=== PATIENT | male | born 1970 | race Caucasian/White ===

== ENCOUNTER 2017-03-18 17:20 | Emergency (ER) | payer OTHER ==
[2017-03-18 18:03] VITALS: BP 128/84; PULSE 93; TEMP 97.6; BMI 33.9
--- NOTE | 2017-03-18 18:12 | PDOC ---
History of Present Illness - General History Source: Patient, EMS Exam Limitations: No Limitations - History of Present Illness Initial Comments: 03/18/17 18:21 46-year-old male with past medical history of alcohol abuse, was sober for many years but Currently relapsed and had a few drinks of alcohol this morning. Patient went to sit down outdoors and has sustained abrasions along his left upper showing. Denies head trauma or loss of consciousness. A bystander called 911 and the patient is brought to the ED. When I had evaluated patient, the patient was mildly intoxicated but otherwise ambulatory without difficulty and speaking with no difficulties. Patient at this time has no other injuries and no head trauma. Denies headaches, nausea, vomiting. Allergies: Penicillins Past surgical history: R ankle surgery Social history: EtOH abuse PCP: Dr. Saleh <Magalys Rod - Last Filed: 03/18/17 18:21> - General History Source: Patient Exam Limitations: No Limitations <Av Javier - Last Filed: 03/18/17 19:11> - General Chief Complaint: Alcohol intoxication Stated Complaint: INTOX,FALL Time Seen by Provider: 03/18/17 18:00 Past History <Magalys Rod - Last Filed: 03/18/17 18:21> <Av Javier - Last Filed: 03/18/17 19:11> - Past Medical History Allergies/Adverse Reactions: Allergies Allergy/AdvReac Type Severity Reaction Status Date / Time Penicillins Allergy Verified 03/18/17 18:03 Review of Systems - Review of Systems Able to Perform ROS?: Yes Comments:: 03/18/17 18:21 GENERAL/CONSTITUTIONAL: No fever or chills. No weakness. HEAD, EYES, EARS, NOSE AND THROAT: No change in vision. No ear pain or discharge. No sore throat. CARDIOVASCULAR: No chest pain or shortness of breath. RESPIRATORY: No cough, wheezing, or hemoptysis. GASTROINTESTINAL: No nausea, vomiting, diarrhea or constipation. GENITOURINARY: No dysuria, frequency, or change in urination. MUSCULOSKELETAL: No joint or muscle swelling or pain. No neck or back pain. SKIN: No rash NEUROLOGIC: No headache, vertigo, loss of consciousness, or change in strength/ sensation. ENDOCRINE: No increased thirst. No abnormal weight change. HEMATOLOGIC/LYMPHATIC: No anemia, easy bleeding, or history of blood clots. ALLERGIC/IMMUNOLOGIC: No hives or skin allergy. <Marcel,Magalys - Last Filed: 03/18/17 18:21> *Physical Exam - Vital Signs Last Vital Signs Temp Pulse Resp BP Pulse Ox 97.6 F 93 H 18 128/84 100 03/18/17 17:20 03/18/17 17:20 03/18/17 17:20 03/18/17 17:20 03/18/17 17:20 - Physical Exam Comments: 03/18/17 18:22 GENERAL: Awake, alert, and fully oriented x3, in no acute distress. + Mild AOB. HEAD: No signs of trauma EYES: PERRLA, EOMI, sclera anicteric, conjunctiva clear ENT: Auricles normal inspection, hearing grossly normal, nares patent, oropharynx clear without exudates. Moist mucosa NECK: Normal ROM, supple, no lymphadenopathy, JVD, or masses LUNGS: Breath sounds equal, clear to auscultation bilaterally. No wheezes, and no crackles HEART: Regular rate and rhythm, normal S1 and S2, no murmurs, rubs or gallops ABDOMEN: Soft, nontender, normoactive bowel sounds. No guarding, no rebound. No masses EXTREMITIES: Normal range of motion, no edema. No clubbing or cyanosis. No cords, erythema, or tenderness NEUROLOGICAL: Cranial nerves II through XII grossly intact. Normal speech, normal gait SKIN: Warm, Dry, normal turgor, no rashes or lesions noted. <Magalys Rod - Last Filed: 03/18/17 18:21> Medical Decision Making - Medical Decision Making 03/18/17 18:01 A portion of this note was documented by scribe services under my direction. I have reviewed the details of the note, within reason, and agree with the documentation with the following case summary and management plan written by me. Patient treated in the ED. Nursing notes are reviewed and incorporated into the medical decision-making. Vital signs reviewed. Peripheral IV access obtained by the nurse, laboratory studies are drawn and sent, reviewed and interpreted by myself. Vital Signs Temp Pulse Resp BP Pulse Ox 97.6 F 93 H 18 128/84 100 03/18/17 17:20 03/18/17 17:20 03/18/17 17:20 03/18/17 17:20 03/18/17 17:20 46-year-old male with past medical history of alcohol abuse, was sober for many years but Currently relapsed and had a few drinks of alcohol this morning. Patient went to sit down outdoors and has sustained abrasions along his left upper showing. Denies head trauma or loss of consciousness. A bystander called 911 and the patient is brought to the ED. When I had evaluated patient, the patient was mildly intoxicated but otherwise ambulatory without difficulty and speaking with no difficulties. Patient at this time has no other injuries and no head trauma. Denies headaches, nausea, vomiting. At this time, we'll observe the patient for the next hour which I suspect she'll be sober enough to go home. At this time, we'll defer on imaging. 03/18/17 19:10 Pt appears sober and ambulatory. Will d/c the patient. I discussed the physical exam findings, ancillary test results and final diagnoses with the patient. I answered all of the patient's questions. The patient was satisfied with the care received and felt comfortable with the discharge plan and treatment plan. The patient will call their primary care physician within 24 hours to arrange follow-up and will return to the Emergency Department with any new, persistant or worsening symptoms. <Av Javier - Last Filed: 03/18/17 19:11> *DC/Admit/Observation/Transfer - Attestations Scribe Attestion: 03/18/17 18:22 Documentation prepared by Magalys Rod, acting as medical pathology teacher for Av Javier MD <Magalys Rod - Last Filed: 03/18/17 18:21> - Discharge Dispostion Admit: No <Av Javier - Last Filed: 03/18/17 19:11> Diagnosis at time of Disposition: Alcohol intoxication Qualifiers: Complication of substance-induced condition: uncomplicated Qualified Code(s): F10.920 - Alcohol use, unspecified with intoxication, uncomplicated - Discharge Dispostion Disposition: HOME Condition at time of disposition: Improved - Referrals Referrals: Benny Saleh [Primary Care Provider] - - Patient Instructions Printed Discharge Instructions: DI for Dehydration -- Adult Additional Instructions: Please follow up with your doctors. Drink plenty of fluids and rest.
== END 2017-03-18 19:22 | disposition home or self-care (01) ==
LOC: JER 17:20
DX: F10.120 Alcohol abuse with intoxication, uncomplicated (principal); S40.212A Abrasion of left shoulder, initial encounter; W01.0XXA Fall on same level from slipping, tripping and stumbling without subsequent striking against object, initial encounter; Y93.89 Activity, other specified; Y92.480 Sidewalk as the place of occurrence of the external cause
CPT/HCPCS: 99281-25; 99282-25

== ENCOUNTER 2017-04-12 00:44 | Inpatient (IN) | payer OTHER ==
[2017-04-12] MEDS ORDERED: chlordiazePOXIDE HCL 25 MG CAPSULE PO ONE (00:54)
[2017-04-12] MEDS ORDERED: IBUPROFEN 400 MG TABLET (FP) PO PRN (00:54)
[2017-04-12] MEDS ORDERED: guaiFENesin/D-METHORPHAN HB 10 ML UNIT-DOSE CUPS PO PRN (00:54)
[2017-04-12] MEDS ORDERED: LOPERAMIDE HCL 2 MG CAPSULE PO PRN (00:54)
[2017-04-12] MEDS ORDERED: P-EPHED 60MG/TRIPROLIDI 2.5MG TABLET PO PRN (00:54)
[2017-04-12] MEDS ORDERED: ACETAMINOPHEN 325 MG TABLET (FP) PO PRN (00:54)
[2017-04-12] MEDS ORDERED: MAGNESIUM CITRATE 300 ML BOTTLE PO PRN (00:54)
[2017-04-12] MEDS ORDERED: hydrOXYzine PAMOATE 50 MG CAPSULE (FP) PO PRN (00:54)
[2017-04-12] MEDS ORDERED: MAGNESIUM HYDROX 2400MG/30ML ORAL SUSPENSION 30 ML CUP PO PRN (00:54)
[2017-04-12] MEDS ORDERED: MENTHOL/PHENOL 1 EACH UD MM PRN (00:54)
[2017-04-12] MEDS ORDERED: chlordiazePOXIDE HCL 25 MG CAPSULE PO PRN (00:54)
[2017-04-12] MEDS ORDERED: MAG HYDROX/AL HYDROX/SIMETH 30 ML UNIT-DOSE CUP PO PRN (00:54)
--- NOTE | 2017-04-12 01:01 | HP ---
CIWA Score - CIWA Score Nausea/Vomitin-Mild Nausea/No Vomiting Muscle Tremors: 2 Anxiety: 4-Mod. Anxious/Guarded Agitation: 3 Paroxysmal Sweats: 4-Forehead w/Sweat Beads Orientation: 1-Uncertain about Date Tacttile Disturbances: 0-None Auditory Disturbances: 0-None Visual Disturbances: 1-Very Mild Sensitivity Headache: 1-Very Mild CIWA-Ar Total Score: 17 Admission ROS BHS - HPI Chief Complaint: WITHDRAWAL SYMPTOMS Allergies/Adverse Reactions: Allergies Allergy/AdvReac Type Severity Reaction Status Date / Time Penicillins Allergy Verified 03/18/17 18:03 History of Present Illness: 46 Y.O. MAN WITH AN EXTENSIVE HISTORY OF ALCOHOL DEPENDENCE IS SEEKING DETOX. HE REPORTED HE LAST COMPLETED DETOX 20 YEARS AGO AND MOST RECENTLY COMPLETED OUTPATIENT REHAB IN 2015. HE REPORTS HAVING A 2 YEAR HISTORY OF SOBRIETY AND RELAPSING IN March,. Exam Limitations: Intoxication - Ebola screening Have you traveled outside of the country in the last 21 days: No - Review of Systems Constitutional: Changes in sleep EENT: reports: Blurred Vision, Tearing, Nose Congestion Respiratory: reports: Wheezing Cardiac: reports: No Symptoms Reported GI: reports: No Symptoms Reported : reports: No Symptoms Reported Musculoskeletal: reports: Back Pain Integumentary: reports: No Symptoms Reported Neuro: reports: No Symptoms reported Endocrine: reports: No Symptoms Reported Hematology: reports: No Symptoms Reported Psychiatric: reports: Anxious, Depressed Other Systems: Reviewed and Negative Patient History - Patient Medical History Hx Anemia: No Hx Asthma: Yes Hx Chronic Obstructive Pulmonary Disease (COPD): Yes Hx Cancer: No Hx Cardiac Disorders: No Hx Congestive Heart Failure: No Hx Hypertension: No Hx Hypercholesterolemia: Yes Hx Pacemaker: No HX Cerebrovascular Accident: No Hx Seizures: No Hx Dementia: No Hx Diabetes: No Hx Gastrointestinal Disorders: No Hx Liver Disease: No Hx Genitourinary Disorders: No Hx Sexually Transmitted Disorders: No Hx Renal Disease (ESRD): No Hx Thyroid Disease: No Hx Human Immunodeficiency Virus (HIV): No Hx Hepatitis C: No Hx Depression: Yes Hx Suicide Attempt: No Hx Bipolar Disorder: No Hx Schizophrenia: No - Patient Surgical History Past Surgical History: Yes Hx Orthopedic Surgery: Yes (Left ankle fx repair sx ) Anesthesia Reaction: No - PPD History Previous Implant?: Yes Documented Results: Negative w/o proof PPD to be Administered?: Yes - Reproductive History Patient is a Female of Child Bearing Age (11 -55 yrs old): No - Smoking Cessation Smoking history: Never smoked Have you smoked in the past 12 months: No Hx Chewing Tobacco Use: No - Substance & Tx. History Hx Alcohol Use: Yes Hx Substance Use: No Substance Use Type: Alcohol Hx Substance Use Treatment: Yes (Detox 20 years ago; outpatient rehab in 2017) - Substances Abused Alcohol Route: Oral Frequency: Daily Amount used: 1 litre of Vodka Age of first use: 10 Date of Last Use: 04/12/17 Family Disease History - Family Disease History Family Disease History: Respiratory: Mother (ETOH DEPENDENT ), Other: Father ( ETOH DEPENDENT ), Mother Admission Physical Exam [facility] - Vital Signs Vital Signs: Last Vital Signs Temp Pulse Resp BP Pulse Ox 97.8 F 100 H 16 103/71 04/12/17 02:42 04/12/17 02:42 04/12/17 02:42 04/12/17 02:42 - Physical General Appearance: Yes: Alcohol on Breath, Irritable, Sweating, Anxious HEENTM: Yes: Hearing grossly Normal, Normocephalic, Normal Voice Respiratory: Yes: Chest Non-Tender, Lungs Clear, Normal Breath Sounds, No Respiratory Distress, No Accessory Muscle Use Neck: Yes: No masses,lesions,Nodules Breast: Yes: Breast Exam Deferred Cardiology: Yes: Regular Rhythm, Regular Rate Abdominal: Yes: Non Tender, Flat, Soft Genitourinary: Yes: Other (NO COMPLAINTS REPORTED) Musculoskeletal: Yes: Gait Steady, Pelvis Stable Extremities: Yes: Normal Inspection, Normal Range of Motion, Non-Tender Neurological: Yes: Alert, Normal Mood/Affect, Normal Response Integumentary: Yes: Normal Color, Dry, Warm Lymphatic: Yes: Within Normal Limits - Diagnostic (1) Alcohol dependence with uncomplicated withdrawal Current Visit: Yes Status: Chronic (2) Asthma Current Visit: Yes Status: Chronic (3) COPD (chronic obstructive pulmonary disease) Current Visit: Yes Status: Chronic (4) Psoriasis Current Visit: Yes Status: Chronic Cleared for Admission [facility] - Detox or Rehab [facility] Level of Care: Medically Managed Detox Regimen/Protocol: Librium S Breath Alcohol Content Breath Alcohol Content: 0.114 Vital Signs - Vital Signs Vital Signs Refused: No Temperature: 97.8 F Temperature Source: Oral Pulse Rate: 100 Respiratory Rate: 16 Blood Pressure: 103/71 BP Location: Left Arm Blood Pressure Position: Sitting - Height Height: 5 ft 11 in - Weight Weight: 250 lb Weight Measurement Method: Standing Scale Body Mass Index (BMI): 34.8 - Bowel Function Bowel Movement: No Urine Drug Screen - Test Device Lot Number: [id number] Expiration Date: 12/07/18 - Control Is Test Valid: Yes - Results Drug Screen Negative: Yes
[2017-04-12] MEDS ORDERED: diphenhydrAMINE HCL 25 MG CAPSULE (FP) PO ONE (01:37)
[2017-04-12] MEDS: diphenhydrAMINE HCL 50 MG CAPSULE PO PRN ×2 (01:58→22:08)
[2017-04-12 02:43] VITALS: BMI 34.8
[2017-04-12] MEDS ORDERED: ALBUTEROL SO4 6.7 GM HFA INHALER IH PRN (02:48)
[2017-04-12] MEDS: chlordiazePOXIDE HCL 25 MG CAPSULE PO SCH ×4 (05:39→22:09)
[2017-04-12] MEDS: PRENATAL VITAMINS W/ FOLIC ACID TABLET (FP) PO SCH (10:21)
--- NOTE | 2017-04-12 11:57 | PN ---
S CIWA - CIWA Score Nausea/Vomitin-No Nausea/No Vomiting Muscle Tremors: 4-Moderate,w/Arms Extend Anxiety: 3 Agitation: 4-Moderately Restless Paroxysmal Sweats: 3 Orientation: 0-Oriented Tacttile Disturbances: 0-None Auditory Disturbances: 0-None Visual Disturbances: 0-None Headache: 0-None Present CIWA-Ar Total Score: 14 BHS Progress Note (SOAP) Subjective: interrupted sleep shakes sweats body aches agitation Objective: 04/12/17 12:00 Vital Signs Temperature 98.1 F 04/12/17 10:00 Pulse Rate 93 H 04/12/17 10:00 Respiratory Rate 20 04/12/17 10:00 Blood Pressure 136/96 04/12/17 10:00 O2 Sat by Pulse Oximetry (%) labs pending awake/alert lying in bed no acute distress Assessment: 04/12/17 12:01 withdrawal sx Plan: continue detox increase fluids labs pending
--- NOTE | 2017-04-12 14:05 | CONSULT ---
[facility] Psychiatric Consult - Data Date of interview: 04/12/17 Admission source: [facility] Identifying data: First admission to [facility] for this 46 y/o male seeking detox treatment on for alcohol dependence.Patient is single without children,domiciled (lives with a friend),unemployed and supported on Public Assistance. Substance Abuse History: Discussed in this session.Patient confirms the following data reported at [facility] : Smoking Cessation. Smoking history: Never smoked. Have you smoked in the past 12 months: No. Hx Chewing Tobacco Use: No. - Substance & Tx. History. Hx Alcohol Use: Yes. Hx Substance Use: No. Substance Use Type: Alcohol. Hx Substance Use Treatment: Yes (Detox 20 years ago; outpatient rehab in 2017). - Substances Abused. Alcohol. Route: Oral. Frequency: Daily. Amount used: 1 litre of Vodka. Age of first use: 10. Date of Last Use: 04/12/17 Medical History: Obesity,COPD,bronchial asthma and past history of orthosurgery (left ankle). Psychiatric History: No reported history of psychiatric hospitalizations but current OPD care at the [facility] in [facility].Mr Plaza endorses MDD and PTSD.Treated with a combination of prozac + remeron + trazodone (doses not recalled).Degreee of compliance cannot be established in this session.Patient denies history of suicide attempts. Physical/Sexual Abuse/Trauma History: Patient denies.Declines to discuss clinical elements that support his diagnosis of PTSD.Mr Plaza simply comments that he " went through a lot ". Additional Comment: Drug Screen is negative. Mental Status Exam - Mental Status Exam Alert and Oriented to: Time, Place, Person Cognitive Function: Good Patient Appearance: Well Groomed (overweight) Mood: Withdrawn Affect: Appropriate, Normal Range Patient Behavior: Passive, Fatigued, Cooperative Speech Pattern: Clear Voice Loudness: Normal Thought Process: Goal Oriented Thought Disorder: Not Present Hallucinations: Denies Suicidal Ideation: Denies Homicidal Ideation: Denies Insight/Judgement: Poor Sleep: Poorly, Difficulty falling asleep Appetite: Good Muscle strength/Tone: Normal Gait/Station: Normal Psychiatric Findings - Problem List ([place] 1, 2,3) (1) Alcohol dependence with uncomplicated withdrawal Current Visit: Yes Status: Acute (2) Substance induced mood disorder Current Visit: Yes Status: Acute (3) Post traumatic stress disorder (PTSD) Current Visit: No Status: Chronic Comment: As per records. (4) MDD (major depressive disorder) Current Visit: Yes Status: Chronic Comment: History. (5) Asthma Current Visit: Yes Status: Chronic (6) COPD (chronic obstructive pulmonary disease) Current Visit: Yes Status: Chronic (7) Psoriasis Current Visit: Yes Status: Chronic (8) Insomnia Current Visit: Yes Status: Acute - Initial Treatment Plan Initial Treatment Plan: Psychoeducation.Detoxification is under way.Medications : prozac 40 mg po daily + trazodone 100 mg po hs.Mirtazapine is withdrawn (no clinical justification for tgree concomitant antidepressant agents).Medications verified via survey of recent pharmacy claims (on 03/07/17 at [facility]).Side effects/benefits discussed with the patient.Made aware of potential for priapism (trazodone),suicidal ideation/sexual dysfunction (prozac).Mr Plaza indicates that he is in agreement with this careplan.Observation.
[2017-04-12 17:03] LABS: URINE APPEARANCE CLEAR; URINE BILIRUBIN NEGATIVE (NEGATIVE); URINE BLOOD NEGATIVE (NEGATIVE); URINE COLOR YELLOW; URINE GLUCOSE (UA) NEGATIVE (NEGATIVE); URINE KETONE NEGATIVE (NEGATIVE); URINE LEUK ESTERASE NEGATIVE (NEGATIVE); URINE NITRITE NEGATIVE (NEGATIVE); URINE PROTEIN NEGATIVE (NEGATIVE); URINE UROBILINOGEN NEGATIVE mg/dL (0.2-1.0)
[2017-04-12] MEDS ORDERED: MIRTAZAPINE 15 MG TABLET (FP) PO SCH (22:00)
[2017-04-12] MEDS: traZODone HCL 100 MG TABLET (FP) PO SCH (22:08)
[2017-04-12] MEDS: THIAMINE HCL 100 MG TABLET (FP) PO SCH (22:09)
[2017-04-13] MEDS: chlordiazePOXIDE HCL 25 MG CAPSULE PO SCH ×4 (06:14→22:05)
--- NOTE | 2017-04-13 08:16 | EKG ---
Test Reason : Blood Pressure : / mmHG Vent. Rate : 074 BPM Atrial Rate : 074 BPM P-R Int : 134 ms QRS Dur : 088 ms QT Int : 384 ms P-R-T Axes : 068 016 042 degrees QTc Int : 426 ms NORMAL SINUS RHYTHM NORMAL ECG NO PREVIOUS ECGS AVAILABLE Confirmed by MUSHTAQ SPARKS, DOYLE ([id number]) on 04/13/2017 8:15:47 AM Referred By: Confirmed By:DOYLE LANDIN MD
[2017-04-13] MEDS: FLUoxetine HCL 20 MG CAPSULE (FP) PO SCH (10:33)
[2017-04-13] MEDS: PRENATAL VITAMINS W/ FOLIC ACID TABLET (FP) PO SCH (10:33)
--- NOTE | 2017-04-13 13:08 | PN ---
S CIWA - CIWA Score Nausea/Vomitin Muscle Tremors: 3 Anxiety: 3 Agitation: 2 Paroxysmal Sweats: 1-Minimal Palms Moist Orientation: 0-Oriented Tacttile Disturbances: 1-Very Mild Itch/Numbness Auditory Disturbances: 1-Very Mild Visual Disturbances: 1-Very Mild Sensitivity Headache: 2-Mild CIWA-Ar Total Score: 17 BHS Progress Note (SOAP) Subjective: ALERT,IRRITABLE,ANXIOUS,INTERRUPTED SLEEP,TREMOR, Objective: 04/13/17 13:06 Vital Signs Temperature 97.7 F 04/13/17 10:06 Pulse Rate 98 H 04/13/17 10:06 Respiratory Rate 20 04/13/17 10:06 Blood Pressure 130/87 04/13/17 10:06 O2 Sat by Pulse Oximetry (%) EKG NSR,NORMAL ECG Laboratory Last Values Urine Color Yellow 04/12/17 16:00 Urine Appearance Clear 04/12/17 16:00 Urine pH 6.0 (5.0-8.0) 04/12/17 16:00 Ur Specific [place] 1.025 (1.005-1.025) 04/12/17 16:00 Urine Protein Negative (NEGATIVE) 04/12/17 16:00 Urine Glucose (UA) Negative (NEGATIVE) 04/12/17 16:00 Urine Ketones Negative (NEGATIVE) 04/12/17 16:00 Urine Blood Negative (NEGATIVE) 04/12/17 16:00 Urine Nitrite Negative (NEGATIVE) 04/12/17 16:00 Urine Bilirubin Negative (NEGATIVE) 04/12/17 16:00 Urine Urobilinogen Negative mg/dL (0.2-1.0) 04/12/17 16:00 Ur Leukocyte Esterase Negative (NEGATIVE) 04/12/17 16:00 LABS PENDING Assessment: 04/13/17 13:07 WITHDRAWAL SYMPTOM Plan: CONTINUE DETOX
[2017-04-13 13:45] LABS: MCH 30.9 pg (25.7-33.7); MCHC 33.3 g/dl (32.0-35.9); MEAN CELL VOLUME 92.7 fl (80-96); MEAN PLT VOLUME 9.3 fl (7.5-11.1); PLATELET COUNT 253 K/MM3 (134-434); RDW 15.3 % (11.9-15.9); WHITE BLOOD COUNT 6.8 K/mm3 (4.0-10.0)
[2017-04-13 13:59] LABS: ALBUMIN 3.3 g/dl (3.4-5.0); ANION GAP 8 (8-16); CALCIUM 8.7 mg/dL (8.5-10.1); CO2 29 mmol/L (21-32); GLUCOSE,RANDOM 198 mg/dL (74-106)
[2017-04-13 14:03] LABS: ALK PHOS 69 U/L (45-117); BILIRUBIN,TOTAL 0.5 mg/dL (0.2-1.0); SGOT/AST 20 U/L (15-37); SGPT/ALT 43 U/L (12-78)
[2017-04-13] MEDS: THIAMINE HCL 100 MG TABLET (FP) PO SCH (22:05)
[2017-04-13] MEDS: traZODone HCL 100 MG TABLET (FP) PO SCH (22:05)
[2017-04-14] MEDS: chlordiazePOXIDE 5 MG CAPSULE PO SCH ×4 (05:32→22:06)
[2017-04-14] MEDS: PRENATAL VITAMINS W/ FOLIC ACID TABLET (FP) PO SCH (10:09)
[2017-04-14] MEDS: FLUoxetine HCL 20 MG CAPSULE (FP) PO SCH (10:09)
--- NOTE | 2017-04-14 13:04 | PN ---
S Progress Note (SOAP) Subjective: ALERT,IRRITABLE,ANXIOUS,INTERRUPTED SLEEP, Objective: 04/14/17 13:03 Vital Signs Temperature 97.7 F 04/14/17 10:32 Pulse Rate 91 H 04/14/17 10:32 Respiratory Rate 18 04/14/17 10:32 Blood Pressure 125/81 04/14/17 10:32 O2 Sat by Pulse Oximetry (%) Assessment: 04/14/17 13:03 WITHDRAWAL SYMPTOM Plan: CONTINUE DETOX
[2017-04-14] MEDS: traZODone HCL 100 MG TABLET (FP) PO SCH (22:06)
[2017-04-14] MEDS: THIAMINE HCL 100 MG TABLET (FP) PO SCH (22:06)
[2017-04-15] MEDS: chlordiazePOXIDE HCL 10 MG CAPSULE PO SCH ×4 (05:15→22:39)
--- NOTE | 2017-04-15 10:13 | PN ---
BHS Progress Note (SOAP) Subjective: hot/cold chills sweats interrupted sleep Objective: 04/15/17 10:12 Vital Signs Temperature 96.3 F L 04/15/17 09:58 Pulse Rate 106 H 04/15/17 09:58 Respiratory Rate 20 04/15/17 09:58 Blood Pressure 92/83 04/15/17 09:58 O2 Sat by Pulse Oximetry (%) awake/alert ambulating no acute distress Assessment: 04/15/17 10:12 withdrawal sx Plan: continue detox increase fluids d/c in am
[2017-04-15] MEDS: PRENATAL VITAMINS W/ FOLIC ACID TABLET (FP) PO SCH (10:19)
[2017-04-15] MEDS: FLUoxetine HCL 20 MG CAPSULE (FP) PO SCH (10:19)
[2017-04-15] MEDS: THIAMINE HCL 100 MG TABLET (FP) PO SCH (22:39)
[2017-04-15] MEDS: traZODone HCL 100 MG TABLET (FP) PO SCH (22:39)
[2017-04-16 06:22] VITALS: BP 127/81; PULSE 78; TEMP 97.5
--- NOTE | 2017-04-16 08:42 | DS ---
[facility] Detox Discharge Summary Admission Date: 04/12/17 Discharge Date: 04/16/17 - History Present History: Alcohol Dependence - Physical Exam Results Vital Signs: Vital Signs Temperature 97.5 F L 04/16/17 06:00 Pulse Rate 78 04/16/17 06:00 Respiratory Rate 18 04/16/17 06:00 Blood Pressure 127/81 04/16/17 06:00 O2 Sat by Pulse Oximetry (%) - Treatment Hospital Course: Detox Protocol Followed, Detoxed Safely, Responded well, Discharged Condition Good, Rehab Referral Accepted - Medication Discharge Medications: Ambulatory Orders Fluoxetine HCl [Prozac -] 50 mg PO DAILY 03/18/17 Mirtazapine [Remeron [DO NOT STOCK]] 45 mg PO DAILY 03/18/17 Trazodone HCl 100 mg PO DAILY 03/18/17 Fluoxetine HCl [Prozac -] 40 mg PO DAILY #60 capsule 04/12/17 Trazodone HCl 100 mg PO HS #30 tablet 04/12/17 - Diagnosis (1) Alcohol dependence with uncomplicated withdrawal Current Visit: Yes Status: Chronic (2) Insomnia Current Visit: Yes Status: Acute (3) Substance induced mood disorder Current Visit: Yes Status: Acute (4) Asthma Current Visit: Yes Status: Chronic Qualifiers: Asthma severity: mild intermittent (5) COPD (chronic obstructive pulmonary disease) Current Visit: Yes Status: Chronic Qualifiers: Chronic bronchitis type: unspecified (6) MDD (major depressive disorder) Current Visit: Yes Status: Chronic (7) Psoriasis Current Visit: Yes Status: Chronic (8) Alcohol intoxication Current Visit: No Status: Acute Qualifiers: Complication of substance-induced condition: uncomplicated Qualified Code(s): F10.920 - Alcohol use, unspecified with intoxication, uncomplicated (9) Post traumatic stress disorder (PTSD) Current Visit: No Status: Chronic - AMA Did Patient Leave Against Medical Advice: No
== END 2017-04-16 09:05 | disposition home or self-care (01) | DRG 775 ==
LOC: YASAS 00:44 → Y6N 00:46
PROVIDERS: ADMIT Internal Medicine; ATTEND Internal Medicine
PROC: HZ2ZZZZ Detoxification Services for Substance Abuse Treatment (ICD-10-PCS; principal; 2017-04-12)
DX: F10.230 Alcohol dependence with withdrawal, uncomplicated (principal); F19.24 Other psychoactive substance dependence with psychoactive substance-induced mood disorder; F33.9 Major depressive disorder, recurrent, unspecified; F43.10 Post-traumatic stress disorder, unspecified; J45.20 Mild intermittent asthma, uncomplicated; J44.9 Chronic obstructive pulmonary disease, unspecified; L40.9 Psoriasis, unspecified; G47.00 Insomnia, unspecified; E66.9 Obesity, unspecified; Z68.34 Body mass index [BMI] 34.0-34.9, adult; E78.00 Pure hypercholesterolemia, unspecified
CPT/HCPCS: 36415; 80053; 81003; 85027; 86593; 93005; 93010

== ENCOUNTER 2024-02-14 21:55 | Emergency (ER) | payer OTHER ==
[2024-02-14 22:04] VITALS: BMI 38.3
[2024-02-14 23:13] LABS: BASO % 0.4 % (0-2.0); EOS % 0.9 % (0-4.5); HEMATOCRIT 42.2 % (35.4-49); HEMOGLOBIN 14.1 GM/dL (11.7-16.9); LYMPH % 12.3 % (8-40); MCH 29.7 pg (25.7-33.7); MCHC 33.4 g/dl (32.0-35.9); MEAN PLT VOLUME 8.2 fl (7.5-11.1); MONO % 7.7 % (3.8-10.2); NEUT % 78.7 % (42.8-82.8); PLATELET COUNT 434 10^3/uL (134-434); RBC 4.74 M/mm3 (4.00-5.60); RDW 16.1 % (11.9-15.9)
[2024-02-14 23:19] LABS: INR 1.02 (0.83-1.09); PROTHROMBIN TIME (PATIENT) 11.5 SEC (9.7-13.0)
[2024-02-14] MEDS: morphine CARPU-JECT 2 MG/1 ML DISP.SYRIN IVPUSH ONE (23:32)
[2024-02-14 23:33] LABS: POTASSIUM 4.5 mmol/L (3.5-5.1)
[2024-02-14 23:36] LABS: BLOOD UREA NITROGEN 11.8 mg/dL (7-18); CALCIUM 8.5 mg/dL (8.5-10.1)
[2024-02-14 23:37] LABS: ALBUMIN 3.6 g/dl (3.4-5.0)
[2024-02-14 23:40] LABS: CREATININE 0.7 mg/dL (0.55-1.3)
[2024-02-14 23:41] LABS: BILIRUBIN,TOTAL 0.6 mg/dL (0.2-1); TOT PROT 7.4 g/dl (6.4-8.2)
[2024-02-14] MEDS ORDERED: DALBAVANCIN HCL 500 MG VIAL (RESTRICTED TO ID ONLY) IVPB ONE (23:41)
[2024-02-14] MEDS: DALBAVANCIN HCL 1,500 MG in DEXTROSE 5%-WATER - 500 ML IVPB ONE (23:53)
[2024-02-15] MEDS ORDERED: morphine SULFATE 4 MG/ML VIAL ONE (01:46)
[2024-02-15 02:25] VITALS: PULSE 89; RESP 18
[2024-02-15] MEDS: morphine CARPU-JECT 4 MG/1 ML DISP.SYRIN IVPUSH ONE (02:27)
[2024-02-15 02:39] VITALS: BP 124/82
[2024-02-15 02:53] VITALS: TEMP 97.8
== END 2024-02-15 02:54 | disposition short-term general hospital (02) ==
LOC: JER 21:55
PROC: 3E03329 Introduction of Other Anti-infective into Peripheral Vein, Percutaneous Approach (ICD-10-PCS; principal; 2024-02-14)
PROC: 3E033NZ Introduction of Analgesics, Hypnotics, Sedatives into Peripheral Vein, Percutaneous Approach (ICD-10-PCS; 2024-02-14)
PROC: 3E033NZ Introduction of Analgesics, Hypnotics, Sedatives into Peripheral Vein, Percutaneous Approach (ICD-10-PCS; 2024-02-15)
DX: S01.01XA Laceration without foreign body of scalp, initial encounter (principal); S41.102A Unspecified open wound of left upper arm, initial encounter; R07.81 Pleurodynia; L55.0 Sunburn of first degree; W01.198A Fall on same level from slipping, tripping and stumbling with subsequent striking against other object, initial encounter
CPT/HCPCS: 36415; 70450-TC; 71045-TC-FY; 71250-TC; 72125-TC; 73090-TC-LT-FY; 74177-TC; 80053; 80307; 85025; 85610; 93005; 93010; 99285-25; J0875; Q9967

== ENCOUNTER 2024-04-02 17:19 | Inpatient (IN) | payer OTHER ==
[2024-04-02 18:04] VITALS: BMI 36.2
[2024-04-02] MEDS ORDERED: guaiFENesin 600 MG TABLET.ER (FP) PO PRN (21:50)
[2024-04-02] MEDS ORDERED: DICYCLOMINE HCL 10 MG CAPSULE PO PRN (21:50)
[2024-04-02] MEDS ORDERED: NALOXONE HCL 0.4 MG/ML VIAL IM PRN (21:50)
[2024-04-02] MEDS ORDERED: BENZONATATE 200 MG CAPSULE PO PRN (21:50)
[2024-04-02] MEDS ORDERED: POLYETHYLENE GLYCOL (HEALTHYLAX) 3350 17 GM PACKET PO PRN (21:50)
[2024-04-02] MEDS ORDERED: MAGNESIUM HYDROX 2400MG/30ML ORAL SUSPENSION 30 ML CUP PO PRN (21:50)
[2024-04-02] MEDS ORDERED: BENZOCAINE/MENTHOL (CHLORASEPTIC ) LOZENGE MM PRN (21:50)
[2024-04-02] MEDS ORDERED: MAG HYDROX/AL HYDROX/SIMETH 30 ML UNIT-DOSE CUP PO PRN (21:50)
[2024-04-02] MEDS ORDERED: NALOXONE (NARCAN) HCL 4 MG/0.1 ML SPRAY NS PRN (21:50)
[2024-04-02] MEDS ORDERED: ONDANSETRON *ODT* 4 MG TABLET SL PRN (21:50)
[2024-04-02] MEDS ORDERED: ACETAMINOPHEN 325 MG TABLET (FP) PO PRN (21:50)
[2024-04-02] MEDS ORDERED: BISMUTH SUBSALICYLATE 524 MG/30 ML PO PRN (21:50)
[2024-04-02] MEDS ORDERED: LOPERAMIDE HCL 2 MG CAPSULE PO PRN (21:50)
[2024-04-02] MEDS ORDERED: IBUPROFEN 400 MG TABLET (FP) PO PRN (21:50)
[2024-04-02] MEDS: hydrOXYzine PAMOATE 25 MG CAPSULE (FP) PO PRN (23:32)
[2024-04-02] MEDS: METHOCARBAMOL 500 MG TABLET PO PRN (23:32)
[2024-04-02] MEDS: MELATONIN 5 MG TABLETS PO SCH (23:32)
[2024-04-02] MEDS: THIAMINE 100 MG TABLET PO SCH (23:32)
[2024-04-03] MEDS: PRENATAL VITAMINS W/ FOLIC ACID TABLET (FP) PO SCH (09:57)
[2024-04-03] MEDS ORDERED: chlordiazePOXIDE HCL 25 MG CAPSULE PO PRN (09:58)
[2024-04-03] MEDS: chlordiazePOXIDE HCL 25 MG CAPSULE PO SCH (10:05)
[2024-04-03] MEDS: IBUPROFEN 600 MG TABLET (FP) PO PRN (10:07)
[2024-04-03] MEDS: cloNIDine HCL 0.1 MG TABLET PO ONE (13:36)
[2024-04-03] MEDS: amLODIPine BESYLATE 10 MG TABLET (FP) PO SCH (13:36)
[2024-04-03 14:26] LABS: HEMATOCRIT 39.1 % (35.4-49); HEMOGLOBIN 13.7 GM/dL (11.7-16.9); MCH 29.6 pg (25.7-33.7); MCHC 34.9 g/dl (32.0-35.9); MEAN CELL VOLUME 84.8 fl (80-96); PLATELET COUNT 208 10^3/uL (134-434); RBC 4.61 M/mm3 (4.00-5.60); RDW 15.2 % (11.9-15.9); WHITE BLOOD COUNT 3.9 K/mm3 (4.0-10.0)
[2024-04-03 14:27] LABS: CHLORIDE 100 mmol/L (98-107); SODIUM 139 mmol/L (136-145)
[2024-04-03 14:37] LABS: CALCIUM 8.4 mg/dL (8.5-10.1)
[2024-04-03 14:38] LABS: ALBUMIN 3.5 g/dl (3.4-5.0); ANION GAP 12 mmol/L (4-13); BLOOD UREA NITROGEN 9.2 mg/dL (7-18); CO2 27 mmol/L (21-32); GLUCOSE,RANDOM 86 mg/dL (74-106)
[2024-04-03 14:39] LABS: SGPT/ALT 34 U/L (13-61)
[2024-04-03 14:40] LABS: CREATININE 0.6 mg/dL (0.55-1.3)
[2024-04-03 14:41] LABS: BILIRUBIN,TOTAL 1.6 mg/dL (0.2-1); SGOT/AST 26 U/L (15-37); TOT PROT 6.4 g/dl (6.4-8.2)
[2024-04-03 14:42] LABS: ALK PHOS 136 U/L (45-117)
[2024-04-03] MEDS: POTASSIUM CHLORIDE ORAL LIQUID 20 MEQ/15 ML PO ONE (16:06)
[2024-04-03] MEDS: traZODone HCL 100 MG TABLET (FP) PO SCH (22:50)
[2024-04-03] MEDS: POTASSIUM CHLORIDE ORAL LIQUID 20 MEQ/15 ML PO SCH (22:52)
[2024-04-05] MEDS: chlordiazePOXIDE HCL 25 MG CAPSULE PO SCH (05:55)
[2024-04-06] MEDS ORDERED: chlordiazePOXIDE HCL 10 MG CAPSULE PO PRN
[2024-04-06] MEDS: chlordiazePOXIDE HCL 10 MG CAPSULE PO SCH (05:43)
[2024-04-07] MEDS: chlordiazePOXIDE HCL 10 MG CAPSULE PO SCH (05:48)
[2024-04-07] MEDS: NALTREXONE HCL 50 MG TABLET PO SCH (11:51)
[2024-04-07] MEDS: LOSARTAN POTASSIUM 50 MG TABLET PO SCH (14:42)
[2024-04-08] MEDS: chlordiazePOXIDE HCL 10 MG CAPSULE PO ONE (05:57)
[2024-04-08 12:27] VITALS: RESP 18
[2024-04-08 13:02] VITALS: BP 116/73; PULSE 106; TEMP 97.5
== END 2024-04-08 12:54 | disposition other institution (70) | DRG 775 ==
LOC: YASAS 17:19 → Y6N 21:57
PROVIDERS: ADMIT Allergy & Immunology; ATTEND Surgery
PROC: HZ2ZZZZ Detoxification Services for Substance Abuse Treatment (ICD-10-PCS; principal; 2024-04-02)
DX: F10.230 Alcohol dependence with withdrawal, uncomplicated (principal); F10.24 Alcohol dependence with alcohol-induced mood disorder; F10.282 Alcohol dependence with alcohol-induced sleep disorder; F32.9 Major depressive disorder, single episode, unspecified; F43.10 Post-traumatic stress disorder, unspecified; E87.6 Hypokalemia; I10 Essential (primary) hypertension; J44.9 Chronic obstructive pulmonary disease, unspecified; J45.20 Mild intermittent asthma, uncomplicated; L40.9 Psoriasis, unspecified; H91.91 Unspecified hearing loss, right ear; Z99.89 Dependence on other enabling machines and devices; Z88.0 Allergy status to penicillin
CPT/HCPCS: 36415; 70450-TC; 71250-TC; 72125-TC; 73610-TC-RT-FY; 73630-TC-RT-FY; 80053; 80305; 80307; 81003; 83690; 83735; 84132; 84484; 85025; 85027; 85610; 85730; 86780; 87086; 87186; 87811; 93005; 93010; 99285-25

== ENCOUNTER 2024-04-08 13:00 | Inpatient (IN) | payer OTHER ==
[~2024-04-08 13:00] MED LIST: ACETAMINOPHEN 325 MG TABLET (FP) PO PRN; BENZONATATE 200 MG CAPSULE PO PRN; IBUPROFEN 400 MG TABLET (FP) PO PRN; LOPERAMIDE HCL 2 MG CAPSULE PO PRN; MAG HYDROX/AL HYDROX/SIMETH 30 ML UNIT-DOSE CUP PO PRN; MAGNESIUM HYDROX 2400MG/30ML ORAL SUSPENSION 30 ML CUP PO PRN; NICOTINE 7 MG/24 HOURS TOPICAL PATCH TD PRN; NICOTINE POLACRILEX 2 MG GUM BUC PRN; NICOTINE POLACRILEX 2 MG LOZENGE BC PRN; POLYETHYLENE GLYCOL (HEALTHYLAX) 3350 17 GM PACKET PO PRN; guaiFENesin 600 MG TABLET.ER (FP) PO PRN
[2024-04-08] MEDS: traZODone HCL 100 MG TABLET (FP) PO SCH (21:04)
[2024-04-08] MEDS: THIAMINE 100 MG TABLET PO SCH (21:05)
[2024-04-08] MEDS: MELATONIN 5 MG TABLETS PO SCH (21:05)
[2024-04-09] MEDS: NALTREXONE HCL 50 MG TABLET PO SCH (09:42)
[2024-04-09] MEDS: amLODIPine BESYLATE 10 MG TABLET (FP) PO SCH (09:42)
[2024-04-09] MEDS: LOSARTAN POTASSIUM 50 MG TABLET PO SCH (09:42)
[2024-04-09] MEDS: PRENATAL VITAMINS W/ FOLIC ACID TABLET (FP) PO SCH (09:42)
[2024-04-09] MEDS: SERTRALINE HCL 50 MG TABLET (FP) PO SCH (10:36)
[2024-04-10] MEDS: IBUPROFEN 600 MG TABLET (FP) PO PRN (10:13)
[2024-04-12] MEDS: hydrOXYzine PAMOATE 25 MG CAPSULE (FP) PO PRN (10:21)
[2024-04-14] MEDS: BENZOCAINE/MENTHOL (CHLORASEPTIC ) LOZENGE MM PRN (10:20)
[2024-04-14] MEDS ORDERED: guaiFENesin 200 MG/10 ML 10 ML UNIT-DOSE CUPS PO PRN (10:53)
[2024-04-14] MEDS ORDERED: ALBUTEROL SO4 HFA INHALER IH PRN (10:57)
[2024-04-14] MEDS: ALBUTEROL SO4 2.5/IPRATROPIUM 0.5 INH SOL 3 ML VIAL.NEB. NEB ONE (13:59)
[2024-04-16] MEDS: BENZONATATE 200 MG CAPSULE PO PRN (10:34)
[2024-04-16] MEDS: P-EPHED 60MG/TRIPROLIDI 2.5MG TABLET PO PRN (10:34)
[2024-04-16] MEDS: FLUTICASONE PROP 0.05% 16 GM NASAL SPRAY NS SCH (14:05)
[2024-04-16] MEDS: HYDROCORTISONE 1% TOPICAL CREAM 30 GM TUBE TP PRN (14:06)
[2024-04-29] MEDS: FLUOCINONIDE 0.05% CREAM (15 GM TUBE) TP SCH (14:22)
[2024-05-04] MEDS: NALTREXONE MICROSPHERES (VIVITROL) 380 MG DISP.SYRIN IM ONE (09:41)
[2024-05-05 07:07] VITALS: TEMP 97.3
[2024-05-05 09:36] VITALS: BP 100/61; PULSE 110; RESP 17
== END 2024-05-05 13:07 | disposition home or self-care (01) | DRG 772 ==
LOC: YASAS 13:00 → Y3W 13:01
PROVIDERS: ADMIT Allergy & Immunology; ATTEND Psychiatry & Neurology Pain Medicine
PROC: HZ42ZZZ Group Counseling for Substance Abuse Treatment, Cognitive-Behavioral (ICD-10-PCS; principal; 2024-04-08)
DX: F10.20 Alcohol dependence, uncomplicated (principal); F32.A Depression, unspecified; F41.8 Other specified anxiety disorders; F43.10 Post-traumatic stress disorder, unspecified; E78.5 Hyperlipidemia, unspecified; H91.91 Unspecified hearing loss, right ear; I10 Essential (primary) hypertension; J44.9 Chronic obstructive pulmonary disease, unspecified; L40.9 Psoriasis, unspecified; J06.9 Acute upper respiratory infection, unspecified; R21 Rash and other nonspecific skin eruption; Z99.89 Dependence on other enabling machines and devices; Z88.0 Allergy status to penicillin
CPT/HCPCS: 0241U-QW; 36415; 71045-TC-FY; 84132; 94640

== ENCOUNTER 2024-05-29 16:20 | Inpatient (IN) | payer OTHER ==
[2024-05-29 17:48] VITALS: BMI 37.6
[2024-05-29] MEDS ORDERED: BISMUTH SUBSALICYLATE 524 MG/30 ML PO PRN (18:38)
[2024-05-29] MEDS ORDERED: MAG HYDROX/AL HYDROX/SIMETH 30 ML UNIT-DOSE CUP PO PRN (18:38)
[2024-05-29] MEDS ORDERED: NALOXONE (NARCAN) HCL 4 MG/0.1 ML SPRAY NS PRN (18:38)
[2024-05-29] MEDS ORDERED: IBUPROFEN 400 MG TABLET (FP) PO PRN (18:38)
[2024-05-29] MEDS ORDERED: DICYCLOMINE HCL 10 MG CAPSULE PO PRN (18:38)
[2024-05-29] MEDS ORDERED: POLYETHYLENE GLYCOL (HEALTHYLAX) 3350 17 GM PACKET PO PRN (18:38)
[2024-05-29] MEDS ORDERED: ONDANSETRON *ODT* 4 MG TABLET SL PRN (18:38)
[2024-05-29] MEDS ORDERED: BENZONATATE 200 MG CAPSULE PO PRN (18:38)
[2024-05-29] MEDS ORDERED: hydrOXYzine PAMOATE 25 MG CAPSULE (FP) PO PRN (18:38)
[2024-05-29] MEDS ORDERED: MAGNESIUM HYDROX 2400MG/30ML ORAL SUSPENSION 30 ML CUP PO PRN (18:38)
[2024-05-29] MEDS ORDERED: guaiFENesin 600 MG TABLET.ER (FP) PO PRN (18:38)
[2024-05-29] MEDS ORDERED: LOPERAMIDE HCL 2 MG CAPSULE PO PRN (18:38)
[2024-05-29] MEDS ORDERED: ACETAMINOPHEN 325 MG TABLET (FP) PO PRN (18:38)
[2024-05-29] MEDS ORDERED: NALOXONE HCL 0.4 MG/ML VIAL IM PRN (18:38)
[2024-05-29] MEDS ORDERED: chlordiazePOXIDE HCL 25 MG CAPSULE PO PRN (18:38)
[2024-05-29] MEDS ORDERED: BENZOCAINE/MENTHOL (CHLORASEPTIC ) LOZENGE MM PRN (18:38)
[2024-05-29] MEDS: IBUPROFEN 600 MG TABLET (FP) PO PRN (22:45)
[2024-05-29] MEDS: MELATONIN 5 MG TABLETS PO SCH (22:45)
[2024-05-29] MEDS: METHOCARBAMOL 500 MG TABLET PO PRN (22:46)
[2024-05-29] MEDS: chlordiazePOXIDE HCL 25 MG CAPSULE PO SCH (22:46)
[2024-05-29] MEDS: THIAMINE 100 MG TABLET PO SCH (22:46)
[2024-05-29] MEDS: MINERAL OIL/PET HY-PHL TOPICAL OINTMENT 454 GM JAR TP SCH (23:31)
[2024-05-30] MEDS: predniSONE 20 MG TABLET (UD) PO SCH (10:13)
[2024-05-30] MEDS: PRENATAL VITAMINS W/ FOLIC ACID TABLET (FP) PO SCH (10:14)
[2024-05-30 10:25] LABS: CHLORIDE 100 mmol/L (98-107); SODIUM 138 mmol/L (136-145)
[2024-05-30 10:30] LABS: HEMATOCRIT 43.2 % (35.4-49); MCH 30.2 pg (25.7-33.7); MCHC 32.5 g/dl (32.0-35.9); MEAN CELL VOLUME 92.9 fl (80-96); MEAN PLT VOLUME 7.9 fl (7.5-11.1); PLATELET COUNT 141 10^3/uL (134-434); RBC 4.65 M/mm3 (4.00-5.60); RDW 19.8 % (11.9-15.9); WHITE BLOOD COUNT 4.8 K/mm3 (4.0-10.0)
[2024-05-30 10:34] LABS: BILIRUBIN,TOTAL 1.1 mg/dL (0.2-1)
[2024-05-30 10:35] LABS: ALK PHOS 80 U/L (45-117)
[2024-05-30 10:37] LABS: ALBUMIN 3.7 g/dl (3.4-5.0); BLOOD UREA NITROGEN 11.5 mg/dL (7-18); CALCIUM 8.8 mg/dL (8.5-10.1); CO2 27 mmol/L (21-32); GLUCOSE,RANDOM 125 mg/dL (74-106)
[2024-05-30 10:39] LABS: SGOT/AST 30 U/L (15-37); SGPT/ALT 27 U/L (13-61)
[2024-05-30 10:40] LABS: ANION GAP 11 mmol/L (4-13); POTASSIUM 2.9 mmol/L (3.5-5.1)
[2024-05-30 10:41] LABS: CREATININE 0.8 mg/dL (0.55-1.3); TOT PROT 6.8 g/dl (6.4-8.2)
[2024-05-30] MEDS: POTASSIUM CHLORIDE ORAL LIQUID 20 MEQ/15 ML PO ONE ×2 (11:39→14:49)
[2024-05-30] MEDS: cloNIDine HCL 0.1 MG TABLET PO PRN (13:42)
[2024-05-30] MEDS: SERTRALINE HCL 50 MG TABLET (FP) PO SCH (14:48)
[2024-05-30] MEDS: traZODone HCL 100 MG TABLET (FP) PO SCH (22:09)
[2024-05-31] MEDS: chlordiazePOXIDE HCL 25 MG CAPSULE PO SCH (05:53)
[2024-05-31 09:17] LABS: POTASSIUM 4.1 mmol/L (3.5-5.1)
[2024-05-31 09:22] LABS: BLOOD UREA NITROGEN 11.7 mg/dL (7-18); CALCIUM 9.5 mg/dL (8.5-10.1)
[2024-05-31 09:26] LABS: CREATININE 0.8 mg/dL (0.55-1.3)
[2024-06-01] MEDS ORDERED: chlordiazePOXIDE HCL 10 MG CAPSULE PO PRN
[2024-06-01] MEDS: chlordiazePOXIDE HCL 10 MG CAPSULE PO SCH (05:35)
[2024-06-01] MEDS: LOSARTAN POTASSIUM 50 MG TABLET PO SCH (10:12)
[2024-06-01] MEDS: amLODIPine BESYLATE 10 MG TABLET (FP) PO SCH (10:12)
[2024-06-01] MEDS: FLUTICASONE PROP 0.05% 16 GM NASAL SPRAY NS SCH (10:15)
[2024-06-01] MEDS: HYDROCHLOROTHIAZIDE 12.5 MG CAPSULE (FP) PO SCH (11:12)
[2024-06-01] MEDS: NALTREXONE HCL 50 MG TABLET PO SCH (11:13)
[2024-06-02] MEDS: chlordiazePOXIDE HCL 10 MG CAPSULE PO SCH (05:42)
[2024-06-02] MEDS: LOSARTAN POTASSIUM 50 MG TABLET PO SCH (09:24)
[2024-06-02] MEDS: HYDROCHLOROTHIAZIDE 25 MG TABLET (FP) PO SCH (10:01)
[2024-06-02] MEDS: HYDROCHLOROTHIAZIDE 12.5 MG CAPSULE (FP) PO ONE (10:03)
[2024-06-03] MEDS: chlordiazePOXIDE HCL 10 MG CAPSULE PO ONE (05:54)
[2024-06-03 09:10] VITALS: BP 142/84; PULSE 84; RESP 16; TEMP 97.5
== END 2024-06-03 13:55 | disposition home or self-care (01) | DRG 775 ==
LOC: YASAS 16:20 → Y3N 18:42
PROVIDERS: ADMIT Allergy & Immunology; ATTEND Surgery
PROC: HZ2ZZZZ Detoxification Services for Substance Abuse Treatment (ICD-10-PCS; principal; 2024-05-29)
DX: F10.230 Alcohol dependence with withdrawal, uncomplicated (principal); F19.282 Other psychoactive substance dependence with psychoactive substance-induced sleep disorder; F19.24 Other psychoactive substance dependence with psychoactive substance-induced mood disorder; F32.A Depression, unspecified; F43.10 Post-traumatic stress disorder, unspecified; E87.6 Hypokalemia; H91.91 Unspecified hearing loss, right ear; I10 Essential (primary) hypertension; J45.909 Unspecified asthma, uncomplicated; L40.9 Psoriasis, unspecified; Z88.0 Allergy status to penicillin
CPT/HCPCS: 36415; 80048; 80053; 80305; 80307; 82140; 82977; 85027; 86780; 87811; 93005; 93010

== ENCOUNTER 2025-02-26 12:05 | Inpatient (IN) | payer OTHER ==
[2025-02-26 12:31] VITALS: BMI 43.9
[2025-02-26] MEDS ORDERED: cloNIDine HCL 0.1 MG TABLET ONE (13:02)
[2025-02-26] MEDS ORDERED: IBUPROFEN 400 MG TABLET (FP) PO PRN (13:03)
[2025-02-26] MEDS ORDERED: POLYETHYLENE GLYCOL (HEALTHYLAX) 3350 17 GM PACKET PO PRN (13:03)
[2025-02-26] MEDS ORDERED: BISMUTH SUBSALICYLATE 262 MG/15 ML BTL PO PRN (13:03)
[2025-02-26] MEDS ORDERED: MAGNESIUM HYDROX 2400MG/30ML ORAL SUSPENSION 30 ML CUP PO PRN (13:03)
[2025-02-26] MEDS ORDERED: MAG HYDROX/AL HYDROX/SIMETH 30 ML UNIT-DOSE CUP PO PRN (13:03)
[2025-02-26] MEDS: cloNIDine HCL 0.1 MG TABLET PO ONE (13:03)
[2025-02-26] MEDS ORDERED: DICYCLOMINE HCL 10 MG CAPSULE PO PRN (13:03)
[2025-02-26] MEDS ORDERED: ONDANSETRON *ODT* 4 MG TABLET SL PRN (13:03)
[2025-02-26] MEDS ORDERED: LOPERAMIDE HCL 2 MG CAPSULE PO PRN (13:03)
[2025-02-26] MEDS ORDERED: guaiFENesin 600 MG TABLET.ER (FP) PO PRN (13:03)
[2025-02-26] MEDS ORDERED: chlordiazePOXIDE HCL 25 MG CAPSULE PO PRN (13:03)
[2025-02-26] MEDS ORDERED: BENZONATATE 200 MG CAPSULE PO PRN (13:03)
[2025-02-26] MEDS ORDERED: NALOXONE (NARCAN) HCL 4 MG/0.1 ML SPRAY NS PRN (13:03)
[2025-02-26] MEDS ORDERED: NICOTINE 14 MG/24 HOURS TOPICAL PATCH TD ONE (13:49)
[2025-02-26] MEDS ORDERED: amLODIPine BESYLATE 5 MG TABLET (FP) ONE (13:49)
[2025-02-26] MEDS ORDERED: PRENATAL VITAMINS W/ FOLIC ACID TABLET (FP) PO ONE (13:50)
[2025-02-26] MEDS: amLODIPine BESYLATE 10 MG TABLET (FP) PO SCH (13:51)
[2025-02-26] MEDS: PRENATAL VITAMINS W/ FOLIC ACID TABLET (FP) PO SCH (13:51)
[2025-02-26] MEDS: NICOTINE 14 MG/24 HOURS TOPICAL PATCH TD SCH (13:51)
[2025-02-26] MEDS: chlordiazePOXIDE HCL 25 MG CAPSULE PO SCH (17:47)
[2025-02-26] MEDS: IBUPROFEN 600 MG TABLET (FP) PO PRN (17:48)
[2025-02-26] MEDS: MELATONIN 5 MG TABLETS PO SCH (22:54)
[2025-02-26] MEDS: THIAMINE 100 MG TABLET PO SCH (22:55)
[2025-02-26] MEDS: traZODone HCL 100 MG TABLET (FP) PO SCH (22:55)
[2025-02-26] MEDS: FLUTICASONE PROP 0.05% 16 GM NASAL SPRAY NS SCH (22:56)
[2025-02-27] MEDS: HYDROCHLOROTHIAZIDE 25 MG TABLET (FP) PO SCH (10:12)
[2025-02-27] MEDS: hydrOXYzine PAMOATE 25 MG CAPSULE (FP) PO PRN (10:12)
[2025-02-27] MEDS: NALTREXONE HCL 50 MG TABLET PO SCH (10:12)
[2025-02-27] MEDS: METHOCARBAMOL 500 MG TABLET PO PRN (10:12)
[2025-02-27] MEDS: SERTRALINE HCL 50 MG TABLET (FP) PO SCH (10:12)
[2025-02-27] MEDS: LOSARTAN POTASSIUM 50 MG TABLET PO SCH (10:12)
[2025-02-28] MEDS: chlordiazePOXIDE HCL 25 MG CAPSULE PO SCH (05:40)
[2025-03-01] MEDS ORDERED: chlordiazePOXIDE HCL 10 MG CAPSULE PO PRN
[2025-03-01] MEDS: chlordiazePOXIDE HCL 10 MG CAPSULE PO SCH (05:43)
[2025-03-01] MEDS: BENZOCAINE/MENTHOL (CHLORASEPTIC ) LOZENGE MM PRN (17:35)
[2025-03-01 17:44] LABS: ABSOLUTE IMMATURE GRANULOCYTES 0.03 x10^3/uL (0.0-0.031); BASOPHILS # 0.08 x10^3/uL (0.01-0.08); EOSINOPHIL % 4.4 % (0.8-7.0); EOSINOPHILS # 0.27 x10^3/uL (0.04-0.54); HEMATOCRIT 47.8 % (40.1-51.0); HEMOGLOBIN 14.9 g/dL (13.7-17.5); MCHC 31.2 g/dl (32.3-36.5); MEAN CELL VOLUME 94.1 fl (79.0-92.2); MEAN PLT VOLUME 9.7 fl (9.4-12.4); MONOCYTE # 0.66 x10^3/uL (0.30-0.82); MONOCYTE % 10.7 % (5.3-12.2); PLATELET COUNT 288 x10^3/uL (163-337); POTASSIUM 4.6 mmol/L (3.5-5.1); RDW 15.8 % (12.2-16.1)
[2025-03-01 17:46] LABS: ALBUMIN 3.6 g/dl (3.4-5.0); BLOOD UREA NITROGEN 14.3 mg/dL (7-18); CALCIUM 10.5 mg/dL (8.5-10.1)
[2025-03-01 17:51] LABS: CREATININE 1.1 mg/dL (0.55-1.3)
[2025-03-01 17:52] LABS: BILIRUBIN,TOTAL 0.4 mg/dL (0.2-1); TOT PROT 6.9 g/dl (6.4-8.2)
[2025-03-02] MEDS: chlordiazePOXIDE HCL 10 MG CAPSULE PO SCH (05:24)
[2025-03-03] MEDS: chlordiazePOXIDE HCL 10 MG CAPSULE PO ONE (05:28)
[2025-03-03 05:46] VITALS: RESP 18
[2025-03-04] MEDS: ACETAMINOPHEN 325 MG TABLET (FP) PO PRN (06:08)
[2025-03-04 07:01] VITALS: PULSE 80
[2025-03-04 08:45] VITALS: BP 122/69; TEMP 98.4
== END 2025-03-04 11:13 | disposition other institution (70) | DRG 775 ==
LOC: YASAS 12:05 → Y6N 13:39
PROVIDERS: ADMIT Allergy & Immunology; ATTEND Allergy & Immunology
PROC: HZ2ZZZZ Detoxification Services for Substance Abuse Treatment (ICD-10-PCS; principal; 2025-02-26)
DX: F10.230 Alcohol dependence with withdrawal, uncomplicated (principal); F19.282 Other psychoactive substance dependence with psychoactive substance-induced sleep disorder; F19.24 Other psychoactive substance dependence with psychoactive substance-induced mood disorder; F32.A Depression, unspecified; F43.10 Post-traumatic stress disorder, unspecified; F41.9 Anxiety disorder, unspecified; E78.5 Hyperlipidemia, unspecified; H91.91 Unspecified hearing loss, right ear; I10 Essential (primary) hypertension; J44.9 Chronic obstructive pulmonary disease, unspecified; L40.9 Psoriasis, unspecified; Z99.89 Dependence on other enabling machines and devices; Z91.81 History of falling; Z88.0 Allergy status to penicillin
CPT/HCPCS: 36415; 80053; 80305; 80307; 85025; 86780; 93005; 93010

== ENCOUNTER 2025-03-04 11:10 | Inpatient (IN) | payer OTHER ==
[2025-03-04] MEDS ORDERED: NALOXONE HCL 0.4 MG/ML VIAL IVPUSH PRN (14:12)
[2025-03-04] MEDS ORDERED: METHOCARBAMOL 500 MG TABLET PO PRN (14:12)
[2025-03-04] MEDS ORDERED: IBUPROFEN 400 MG TABLET (FP) PO PRN (14:12)
[2025-03-04] MEDS ORDERED: guaiFENesin 600 MG TABLET.ER (FP) PO PRN (14:12)
[2025-03-04] MEDS ORDERED: IBUPROFEN 600 MG TABLET (FP) PO PRN (14:12)
[2025-03-04] MEDS ORDERED: NALOXONE (NARCAN) HCL 4 MG/0.1 ML SPRAY NS PRN (14:12)
[2025-03-04] MEDS ORDERED: MAGNESIUM HYDROX 2400MG/30ML ORAL SUSPENSION 30 ML CUP PO PRN (14:12)
[2025-03-04] MEDS ORDERED: LOPERAMIDE HCL 2 MG CAPSULE PO PRN (14:12)
[2025-03-04] MEDS ORDERED: hydrOXYzine PAMOATE 25 MG CAPSULE (FP) PO PRN (14:12)
[2025-03-04] MEDS ORDERED: POLYETHYLENE GLYCOL (HEALTHYLAX) 3350 17 GM PACKET PO PRN (14:12)
[2025-03-04] MEDS ORDERED: BENZONATATE 200 MG CAPSULE PO PRN (14:12)
[2025-03-04] MEDS ORDERED: ACETAMINOPHEN 325 MG TABLET (FP) PO PRN (14:12)
[2025-03-04] MEDS ORDERED: MAG HYDROX/AL HYDROX/SIMETH 30 ML UNIT-DOSE CUP PO PRN (14:12)
[2025-03-04] MEDS: THIAMINE 100 MG TABLET PO SCH (21:49)
[2025-03-04] MEDS: MELATONIN 5 MG TABLETS PO SCH (21:49)
[2025-03-04] MEDS: traZODone HCL 100 MG TABLET (FP) PO SCH (21:49)
[2025-03-04] MEDS: FLUTICASONE PROP 0.05% 16 GM NASAL SPRAY NS SCH (21:50)
[2025-03-04] MEDS: BENZOCAINE/MENTHOL (CHLORASEPTIC ) LOZENGE MM PRN (21:51)
[2025-03-05] MEDS: amLODIPine BESYLATE 10 MG TABLET (FP) PO SCH (10:42)
[2025-03-05] MEDS: HYDROCHLOROTHIAZIDE 25 MG TABLET (FP) PO SCH (10:43)
[2025-03-05] MEDS: SERTRALINE HCL 50 MG TABLET (FP) PO SCH (10:43)
[2025-03-05] MEDS: NALTREXONE HCL 50 MG TABLET PO SCH (10:43)
[2025-03-05] MEDS: PRENATAL VITAMINS W/ FOLIC ACID TABLET (FP) PO SCH (10:43)
[2025-03-05] MEDS: LOSARTAN POTASSIUM 50 MG TABLET PO SCH (10:43)
[2025-03-30 05:50] VITALS: TEMP 97.3
[2025-03-30 09:59] VITALS: PULSE 100; RESP 20
[2025-03-31 05:42] VITALS: BP 157/80
== END 2025-03-31 08:45 | disposition home or self-care (01) | DRG 772 ==
LOC: YASAS 11:10 → Y3NR 11:11 → Y3W 03-05 09:18
PROVIDERS: ADMIT Psychiatry & Neurology Pain Medicine; ATTEND Psychiatry & Neurology Pain Medicine
PROC: HZ42ZZZ Group Counseling for Substance Abuse Treatment, Cognitive-Behavioral (ICD-10-PCS; principal; 2025-03-04)
DX: F10.20 Alcohol dependence, uncomplicated (principal); F19.282 Other psychoactive substance dependence with psychoactive substance-induced sleep disorder; F19.24 Other psychoactive substance dependence with psychoactive substance-induced mood disorder; F43.10 Post-traumatic stress disorder, unspecified; F41.9 Anxiety disorder, unspecified; F32.A Depression, unspecified; E78.5 Hyperlipidemia, unspecified; H91.91 Unspecified hearing loss, right ear; I10 Essential (primary) hypertension; J44.9 Chronic obstructive pulmonary disease, unspecified; L40.9 Psoriasis, unspecified
CPT/HCPCS: 36415; 86803